=== PATIENT | female | born 1985 | race Caucasian/White ===

== ENCOUNTER → 2016-11-11 | Outpatient (CLI) | payer BC ==
[2016-11-11 13:46] LABS: HEMOGLOBIN 13.2 gm/dl (12.3-15.3); RED BLOOD COUNT 4.39 M/UL (4.00-5.10); WHITE BLOOD COUNT 7.4 K/UL (4.5-11.0)
[2016-11-11 14:05] LABS: BUN/CREATININE RATIO 17 (0-10)
== END ==
LOC: LAB 13:22
DX: K59.00 Constipation, unspecified (principal)
CPT/HCPCS: 36415; 80053; 83540; 83550; 84443; 85025